=== PATIENT | male | born 1990 | race Caucasian/White ===

== ENCOUNTER 2018-02-26 03:44 | Emergency (ER) | payer SELFPAY ==
[~2018-02-26] VITALS: Ht 172.7 cm; Wt 57.2 kg
[2018-02-26 03:47] VITALS: BP 116/78
[2018-02-26] MEDS ORDERED: IBUPROFEN 200 MG TABLET ONE (04:08)
[2018-02-26] MEDS ORDERED: ACETAMINOPHEN 500 MG TABLET ONE (04:08)
[2018-02-26] MEDS ORDERED: ACETAMINOPHEN 500 MG TABLET PO ONE (04:30)
[2018-02-26] MEDS ORDERED: IBUPROFEN 200 MG TABLET PO ONE (04:30)
== END 2018-02-26 05:31 | disposition home or self-care (01) ==
LOC: ED 05:28
DX: G89.11 Acute pain due to trauma (principal); R07.89 Other chest pain; F12.10 Cannabis abuse, uncomplicated; F17.200 Nicotine dependence, unspecified, uncomplicated; W01.0XXA Fall on same level from slipping, tripping and stumbling without subsequent striking against object, initial encounter; Y93.89 Activity, other specified; Y92.89 Other specified places as the place of occurrence of the external cause; Y99.8 Other external cause status
CPT/HCPCS: 71046; 99283